=== PATIENT | female | born 1945 | race Caucasian/White ===

== ENCOUNTER 2016-12-07 20:49 | Inpatient (IN) | payer MEDICARE ==
[2016-12-07] MEDS ORDERED: HYDROmorphone 1 MG/ML Syringe IVPUSH ONE (20:54)
[2016-12-07] MEDS ORDERED: Sodium Chloride 0.9% 1,000 ML IV ONE (20:54)
[2016-12-07] MEDS ORDERED: Ondansetron 4 MG/2 ML SDV IV ONE (20:54)
[2016-12-07] MEDS ORDERED: Iopamidol 612 MG/ML 100 ML Bottle IVPUSH ONE (21:02)
--- NOTE | 2016-12-07 21:02 | EDM.PDOC ---
ED HPI GENERAL MEDICAL PROBLEM - General Chief Complaint: Back Pain or Injury Stated Complaint: ABD PAIN, PASS BLOOD Time Seen by Provider: 12/07/16 20:59 Source of Information: Reports: Patient, Family History Limitations: Reports: Other (screaming in pain) - History of Present Illness INITIAL COMMENTS - FREE TEXT/NARRATIVE: spouse states Pt might have K-stones. Pt states still has appy and pain on right back going into RLQ, Bilateral Lower Back Pain Score (Numeric/FACES): 10 - Related Data Allergies Allergy/AdvReac Type Severity Reaction Status Date / Time No Known Allergies Allergy Verified 12/07/16 20:56 Home Meds: Home Meds Aspirin [Halfprin] 81 mg PO DAILY 01/22/15 [History] Zolpidem [Ambien] 5 mg PO BEDTIME 01/22/15 [History] atorvaSTATin [Lipitor] 20 mg PO BEDTIME 01/22/15 [History] Docusate Sodium [Colace] 1 tab PO BEDTIME 02/26/16 [History] Hydrocodone/Acetaminophen [Lorcet 5-325 mg Tablet] 1 tab PO Q4H 02/26/16 [ History] [place]-3/DHA/Epa/Fish Oil [[place]-3 Fish Oil 1,400 MG Sfgl] 1 tab PO DAILY [History] Past Medical History HEENT History: Reports: None Cardiovascular History: Reports: CAD Respiratory History: Reports: None Gastrointestinal History: Reports: Diverticulosis Genitourinary History: Reports: Renal Calculus, UTI, Recurrent 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: Musculoskeletal History: Reports: Arthritis, Other (See Below) Other Musculoskeletal History: degenerative joint disease Neurological History: Reports: None Psychiatric History: Reports: None Endocrine/Metabolic History: Reports: None Hematologic History: Reports: B12 Deficiency Immunologic History: Reports: None Oncologic (Cancer) History: Reports: None Dermatologic History: Reports: None - Infectious Disease History Infectious Disease History: Reports: Chicken Pox, Measles - Past Surgical History Cardiovascular Surgical History: Reports: Coronary Artery Stent Female Surgical History: Reports: Hysterectomy, Tubal Ligation Musculoskeletal Surgical History: Reports: Other (See Below) Social & Family History - Family History Family Medical History: Noncontributory - Tobacco Use Smoking Status *Q: Never Smoker Second Hand Smoke Exposure: Yes - Recreational Drug Use Recreational Drug Use: No - Living Situation & Occupation Living situation: Reports: , with Spouse Occupation: Retired ED ROS GENERAL - Review of Systems Review Of Systems: ROS reveals no pertinent complaints other than HPI. ED EXAM,LOWER BACK PAIN/INJURY - Physical Exam Exam: See Below Exam Limited By: No Limitations General Appearance: Alert, WD/WN, Mild Distress, Other (crying & screaming) Ears: Hearing Grossly Normal Throat/Mouth: Normal Voice, No Airway Compromise Head: Atraumatic Neck: Non-Tender, Full Range of Motion Respiratory/Chest: No Respiratory Distress Cardiovascular: Regular Rate, Rhythm GI/Abdominal: Tender, Other (RLQ). No: Distended, Guarding, Rigid, Rebound Neurological: Alert, Oriented x 3 Psychiatric: Tearful Skin Exam: Warm, Dry Lymphatic: No Adenopathy Course - Vital Signs Last Recorded V/S: Last Vital Signs Temp 36.3 C 12/07/16 20:57 Pulse 97 12/07/16 20:57 Resp 32 H 12/07/16 20:57 BP 144/80 H 12/07/16 20:57 Pulse Ox 98 12/07/16 20:57 - Orders/Labs/Meds Orders: Active Orders 24 hr Category Date Time Status Abdomen Pelvis w Cont [CT] Urgent Exams 12/07/16 21:03 Taken CULTURE URINE [RM] Stat Lab 12/07/16 23:02 Ordered Labs: Laboratory Tests 12/07/16 12/07/16 12/07/16 Range/Units 20:54 20:54 21:11 WBC 3.0 L (5.0-10.0) 10^3/uL RBC 5.02 (4.2-5.4) 10^6/uL Hgb 15.6 (12.0-16.0) g/dL Hct 45.1 (37.0-47.0) % MCV 89.8 (80-100) fL MCH 31.1 (27.0-34.0) pg MCHC 34.6 (33.0-35.0) g/dL Plt Count 186 (150-450) 10^3/uL Neut % (Auto) 80.7 H (42.2-75.2) % Lymph % (Auto) 18.7 L (20.5-50.1) % [place] % (Auto) 0.3 L (2-8) % Eos % (Auto) 0.3 L (1.0-3.0) % Baso % (Auto) 0.0 (0.0-1.0) % Sodium 138 (135-145) mmol/L Potassium 3.3 L (3.6-5.0) mmol/L Chloride 103 (101-111) mmol/L Carbon Dioxide 25.0 (21.0-31.0) mmol/L Anion Gap 13.3 BUN 26 H (7-18) mg/dL Creatinine 1.1 (0.6-1.3) mg/dL Est Cr Clr Drug Dosing 37.95 mL/min Estimated GFR (MDRD) 49 BUN/Creatinine Ratio 23.63 Glucose 92 (74-105) mg/dL Calcium 9.6 (8.4-10.2) mg/dl Total Bilirubin 0.7 (0.2-1.0) mg/dL AST 30 (10-42) IU/L ALT 23 (10-60) IU/L Alkaline Phosphatase 67 (42-121) IU/L Total Protein 7.3 (6.7-8.2) g/dl Albumin 4.5 (3.2-5.5) g/dl Globulin 2.8 Albumin/Globulin Ratio 1.61 Urine Color Fielding (YELLOW) Urine Appearance Cloudy (CLEAR) Urine pH 5.5 (5.0-9.0) Ur Specific [place] 1.015 (1.005-1.030) Urine Protein >=300 H (NEGATIVE) Urine Glucose (UA) 100 H (NEGATIVE) Urine Ketones Negative (NEGATIVE) Urine Occult Blood Moderate H (NEGATIVE) Urine Nitrite Positive H (NEGATIVE) Urine Bilirubin Negative (NEGATIVE) Urine Urobilinogen 1.0 (0.2-1.0) mg/dL Ur Leukocyte Esterase Large H (NEGATIVE) Urine RBC >100 H /HPF Urine WBC >100 H (0-5/HPF) /HPF Ur Epithelial Cells Few /HPF Amorphous Sediment Rare (0/HPF) /HPF Urine Bacteria Rare (0-FEW/HPF) /HPF Urine Mucus Rare /LPF Meds: Medications Discontinued Medications Generic Name Dose Route Start Last Admin Trade Name Freq PRN Reason Stop Dose Admin Hydromorphone HCl 1 mg 12/07/16 20:54 12/07/16 20:59 Dilaudid IVPUSH 12/07/16 20:55 1 mg ONETIME ONE Administration Sodium Chloride 1,000 mls @ 999 mls/hr 12/07/16 20:54 12/07/16 20:58 Normal Saline IV 12/07/16 21:54 999 mls/hr .BOLUS ONE Administration Iopamidol 100 ml 12/07/16 21:02 Isovue-300 (61%) IVPUSH 12/07/16 21:03 ONETIME ONE Ondansetron HCl 4 mg 12/07/16 20:54 12/07/16 20:59 Zofran IV 12/07/16 20:55 4 mg ONETIME ONE Administration - Re-Assessments/Exams Free Text/Narrative Re-Assessment/Exam: 12/07/16 23:03 results discussed with Pt and case with Dr Alberto who kindly admitted Pt Departure - Departure Time of Disposition: 23:03 Disposition: Admitted As Inpatient 66 Condition: good Clinical Impression: UTI, Urinary tract infectious disease Leukopenia Qualifiers: Leukopenia type: unspecified Qualified Code(s): D72.819 - Decreased white blood cell count, unspecified - Discharge Information Forms: ED Department Discharge - My Orders Last 24 Hours: My Active Orders 12/07/16 21:03 Abdomen Pelvis w Cont [CT] Urgent 12/07/16 23:02 CULTURE URINE [RM] Stat - Assessment/Plan Last 24 Hours: My Active Orders 12/07/16 21:03 Abdomen Pelvis w Cont [CT] Urgent 12/07/16 23:02 CULTURE URINE [RM] Stat
[2016-12-07] MEDS ORDERED: Potassium Chloride 10 MEQ Tab.ER PO ONE (23:45)
[2016-12-07] MEDS ORDERED: Docusate Sodium 100 MG Cap PO PRN (23:49)
[2016-12-07] MEDS ORDERED: Ondansetron 4 MG/2 ML SDV IVPUSH PRN (23:49)
[2016-12-07] MEDS ORDERED: Ondansetron 4 MG Tab.DIS PO PRN (23:49)
[2016-12-08] MEDS: NS + KCl 20mEq/L 1,000 ML IV SCH ×2 (00:34→15:59)
[2016-12-08] MEDS: Ciprofloxacin in D5W 400 MG in Premix Bag 1 BAG IV SCH ×6 (00:39→20:57)
[2016-12-08] MEDS: Pantoprazole 40 MG Tab.CR PO SCH ×3 (00:50→17:09)
[2016-12-08] MEDS: Zolpidem 5 MG Tab PO PRN ×2 (00:50→20:56)
--- NOTE | 2016-12-08 00:58 | PCM.HP ---
H&P History of Present Illness - General Date of Service: 12/07/16 Admit Problem/Dx: Admission Diagnosis/Problem Admission Diagnosis/Problem Abdominal pain Source of Information: Patient - History of Present Illness Initial Comments - Free Text/Narative: the patient is a 71-year-old lady who has a history of chronic right-sided flank pain. The patient developed right sided abdomen pain on 06 December. This was moderate, not associated with fever or chills. Later on 07 December the patient had developed a urinary burning, suprapubic discomfort that is similar to prior episodes of urinary tract infection. In the afternoon of 07 December the patient developed a low back pain that started on the left side radiated to the right side. It was severe came in waves. She was comparing it to "childbirth". The patient came into the emergency room. She received Dilaudid and with that the pain has improved but did not completely resolve. She has been able to move lower extremities well, there was no radiation to the legs and no lower extremity numbness. Bilateral Lower Back Pain Score (Numeric/FACES): 10 - Related Data Allergies/Adverse Reactions: Allergies Allergy/AdvReac Type Severity Reaction Status Date / Time sulfamethoxazole Allergy Nausea and Verified 12/07/16 23:37 [From Bactrim] Vomiting trimethoprim [From Bactrim] Allergy Nausea and Verified 12/07/16 23:37 Vomiting Home Medications: Home Meds Aspirin [Halfprin] 81 mg PO DAILY 01/22/15 [History] Zolpidem [Ambien] 5 mg PO BEDTIME 01/22/15 [History] atorvaSTATin [Lipitor] 20 mg PO BEDTIME 01/22/15 [History] Docusate Sodium [Colace] 1 tab PO BEDTIME 02/26/16 [History] Hydrocodone/Acetaminophen [Lorcet 5-325 mg Tablet] 1 tab PO Q4H 02/26/16 [ History] [place]-3/DHA/Epa/Fish Oil [[place]-3 Fish Oil 1,400 MG Sfgl] 1 tab PO DAILY [History] Past Medical History HEENT History: Reports: None, Sinusitis Cardiovascular History: Reports: CAD, High Cholesterol, SOB on Exertion, Stents , Syncope Other Cardiovascular History: 3 stents Respiratory History: Reports: None, Bronchitis, Recurrent, Croup, Pneumonia, Recurrent Gastrointestinal History: Reports: Diverticulosis, GERD, Hemorrhoids, Hiatal Hernia, Other (See Below) Other Gastrointestinal History: Stent on Right side from bowel obstruction Genitourinary History: Reports: Renal Calculus, UTI, Recurrent 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 OB/BYN History: NVD 4 Musculoskeletal History: Reports: Arthritis, Back Pain, Chronic, Other (See Below) Other Musculoskeletal History: degenerative joint disease Neurological History: Reports: None Psychiatric History: Reports: None Endocrine/Metabolic History: Reports: Obesity/BMI 30+ Hematologic History: Reports: B12 Deficiency Immunologic History: Reports: None Oncologic (Cancer) History: Reports: None Dermatologic History: Reports: None - Infectious Disease History Infectious Disease History: Reports: Chicken Pox, Measles, Mumps, Pertussis ( Whooping Cough), Other (See Below) Other Infectious Disease History: Rhuematic fever - Past Surgical History HEENT Surgical History: Reports: Adenoidectomy, Eye Surgery, Tonsillectomy Cardiovascular Surgical History: Reports: Coronary Artery Stent Respiratory Surgical History: Reports: None GI Surgical History: Reports: Cholecystectomy, Colonoscopy, EGD Female Surgical History: Reports: Hysterectomy, Tubal Ligation Musculoskeletal Surgical History: Reports: Other (See Below) Social & Family History - Family History Family Medical History: Noncontributory - Tobacco Use Smoking Status *Q: Never Smoker Second Hand Smoke Exposure: No - Caffeine Use Caffeine Use: Reports: Coffee Other Caffeine Use: drink 3-4 cups a day - Recreational Drug Use Recreational Drug Use: No - Living Situation & Occupation Living situation: Reports: , with Spouse Occupation: Retired H&P Review of Systems - Review of Systems: Review Of Systems: See Below General: Reports: Chills Pulmonary: Denies: Shortness of Breath, Wheezing Cardiovascular: Denies: Chest Pain Gastrointestinal: Reports: Abdominal Pain Genitourinary: Reports: Dysuria Psychiatric: Denies: Confusion Neurological: Reports: Headache Exam - Exam Exam: See Below - Vital Signs Vital Signs: Last Vital Signs Temp 36.3 C 12/07/16 20:57 Pulse 97 12/07/16 20:57 Resp 32 H 12/07/16 20:57 BP 144/80 H 12/07/16 20:57 Pulse Ox 98 12/07/16 20:57 Weight: 77.621 kg - Exam General: Alert, Oriented Neck: Supple Lungs: Clear to Auscultation, Normal Respiratory Effort Cardiovascular: Regular Rate, Regular Rhythm Abdomen: Normal Bowel Sounds, Soft, Other (Suprapubic and right sided tenderness without guarding) Back Exam: Normal Inspection, Other (bilateral straight leg raising test negative) Extremities: Normal Inspection. No: Edema Skin: Warm, Dry, Intact Neuro Extensive - Mental Status: Alert, Oriented x3, Normal Mood/Affect, Normal Cognition - Patient Data Result Diagrams: 12/07/16 20:54 12/07/16 20:54 Imaging Impressions last 24 hrs: CT of the abdomen per reading showed the no abnormalities. Unremarkable appendix , Pancrease. No apparent bowel distention. *Q Meaningful Use (ADM) - VTE *Q VTE Criteria *Q: - Stroke *Q Stroke Criteria *Q: - AMI *Q AMI Criteria *Q: - Problem List (1) Abdominal pain SNOMED Code(s): 82719282 ICD Code: R10.9 - UNSPECIFIED ABDOMINAL PAIN Status: Acute Current Visit : No Qualifiers: Abdominal location: right lower quadrant Qualified Code(s): R10.31 - Right lower quadrant pain (2) UTI, Urinary tract infectious disease SNOMED Code(s): 98700449 ICD Code: N39.0 - URINARY TRACT INFECTION, SITE NOT SPECIFIED Status: Acute Current Visit: Yes Problem List Initiated/Reviewed/Updated: Yes Orders Last 24hrs: Active Orders 24 hr Category Date Time Status Patient Status [ADT] Routine ADT 12/07/16 23:49 Ordered Antiembolic Devices [RC] PER UNIT ROUTINE Care 12/07/16 23:50 Ordered Oxygen Therapy [RC] PRN Care 12/07/16 23:49 Ordered Peripheral IV Care [RC] . DIRECTED Care 12/07/16 23:50 Ordered Up With Assistance [RC] ASDIRECTED Care 12/07/16 23:49 Ordered VTE/DVT Education [RC] PER UNIT ROUTINE Care 12/07/16 23:49 Ordered Vital Signs [RC] Q4H Care 12/07/16 23:49 Ordered Clear Liquid Diet [DIET] Diet 12/07/16 Breakfast Ordered BASIC METABOLIC PANEL,BMP [CHEM] AM Lab 12/08/16 05:15 Ordered CBC WITH AUTO DIFF [HEME] AM Lab 12/08/16 05:15 Ordered HEPATIC FUNCTION PANEL,HFP [CHEM] AM Lab 12/08/16 05:11 Ordered LACTIC ACID [CHEM] AM Lab 12/08/16 05:11 Ordered LIPASE [CHEM] AM Lab 12/08/16 05:11 Ordered Acetaminophen [Tylenol] Med 12/07/16 23:49 Ordered 650 mg PO Q4H PRN Aspirin [Halfprin] Med 12/08/16 09:00 Ordered 81 mg PO DAILY Ciprofloxacin in D5W [Cipro in D5W 400 MG/200 ML] 400 Med 12/07/16 23:50 Ordered mg Premix Bag 1 bag IV Q12HR Docusate Sodium [Colace] Med 12/07/16 23:49 Ordered 100 mg PO BID PRN Heparin Sodium Med 12/08/16 06:00 Ordered 5,000 units SUBCUT Q8HR Morphine Med 12/07/16 23:49 Ordered 1 mg IVPUSH Q2H PRN Ondansetron [Zofran ODT] Med 12/07/16 23:49 Ordered 4 mg PO Q6H PRN Ondansetron [Zofran] Med 12/07/16 23:49 Ordered 4 mg IVPUSH Q6H PRN Pantoprazole [ProTONIX] Med 12/08/16 01:00 Ordered 40 mg PO BIDAC Sodium Chloride 0.9% [Saline Flush] Med 12/07/16 23:49 Ordered 10 ml FLUSH ASDIRECTED PRN Sodium Chloride 0.9% with KCl 20 mEq @ 75 mL/Hr (1000 Med 12/07/16 23:45 Ordered mL) NS + KCl 20mEq/L [Normal Saline with 20 mEq KCl] 1,000 ml IV ASDIRECTED Zolpidem [Ambien] Med 12/07/16 23:49 Ordered 5 mg PO BEDTIME PRN Antiembolic Hose [OM.PC] Per Unit Routine Oth 12/07/16 23:50 Ordered Peripheral IV Insertion Adult [OM.PC] Routine Oth 12/07/16 23:49 Ordered Resuscitation Status Routine Resus Stat 12/07/16 23:49 Ordered Medication Orders Acetaminophen (Tylenol) 650 mg PO Q4H PRN PRN Reason: Pain (Mild 1-3)/fever Aspirin (Halfprin) 81 mg PO DAILY [facility] Docusate Sodium (Colace) 100 mg PO BID PRN PRN Reason: Constipation Heparin Sodium (Porcine) (Heparin Sodium) 5,000 units SUBCUT Q8H [facility] Potassium Chloride/Sodium Chloride (Normal Saline With 20 Meq Kcl) 1,000 mls @ 75 mls/hr IV ASDIRECTED [facility] Last Admin: 12/08/16 00:34 Dose: 75 mls/hr Ciprofloxacin/Dextrose 400 mg/ (Premix) 200 mls @ 200 mls/hr IV Q12HR [facility] Last Admin: 12/08/16 00:39 Dose: 200 mls/hr Morphine Sulfate (Morphine) 1 mg IVPUSH Q2H PRN PRN Reason: Pain (severe 7-10) Ondansetron HCl (Zofran Odt) 4 mg PO Q6H PRN PRN Reason: nausea, able to take PO Ondansetron HCl (Zofran) 4 mg IVPUSH Q6H PRN PRN Reason: Nausea/Vomiting Pantoprazole Sodium (Protonix) 40 mg PO BIDAC [facility] Sodium Chloride (Saline Flush) 10 ml FLUSH ASDIRECTED PRN PRN Reason: Keep Vein Open Zolpidem Tartrate (Ambien) 5 mg PO BEDTIME PRN PRN Reason: Sleep Assessment/Plan Comment:: the patient presented with low back pain right-sided abdominal pain, urinary burning. Acute urinary tract infection No apparent pyelonephritis on CAT scan We'll obtain urine culture Treat with ciprofloxacin The abdomen pain and low back pain might relate to her urinary tract infection. No other abnormalities noted on CAT scan For now we'll monitor Start Protonix Use IV morphine as needed Dyslipidemia Treat with Lipitor DVT prophylaxis will be with subcutaneous heparin
[2016-12-08] MEDS: Morphine 2 MG/ML Syringe IVPUSH PRN ×2 (04:57→20:56)
[2016-12-08] MEDS: Heparin Sodium 5,000 Units/ML Vial SUBCUT SCH ×3 (05:56→21:01)
[2016-12-08] MEDS: Aspirin 81 MG Tab.EC PO SCH (09:08)
[2016-12-08] MEDS: Acetaminophen 325 MG Tab PO PRN (09:15)
--- NOTE | 2016-12-08 12:35 | PCM.PN ---
- General Info Date of Service: 12/08/16 Admission Dx/Problem (Free Text): Admission Diagnosis/Problem Admission Diagnosis/Problem Abdominal pain Subjective Update: she is feeling better, much improved right abdomen pain. She had low-grade temperature but no chills. Could not sleep much overnight. - Review of Systems General: Reports: Fever, Fatigue Pulmonary: Denies: shortness of breath Cardiovascular: Denies: Chest Pain Gastrointestinal: Reports: Abdominal pain (improved) Genitourinary: Reports: dysuria (improved), burning Neurological: Denies: Confusion - Patient Data Vitals - most recent: Last Vital Signs Temp 37.6 C 12/08/16 08:29 Pulse 80 12/08/16 08:29 Resp 20 12/08/16 08:29 BP 87/50 L 12/08/16 08:29 Pulse Ox 93 L 12/08/16 08:29 Weight - most recent: 77.621 kg I&O - last 24 hours: Intake & Output 12/07/16 12/08/16 12/08/16 22:59 06:59 14:59 Intake Total 1222 Output Total 350 Balance 872 Lab Results last 24 hrs: Laboratory Results - last 24 hr 12/08/16 12/08/16 12/08/16 Range/Units 06:15 06:15 06:15 WBC 4.6 L (5.0-10.0) 10^3/uL RBC 4.15 L (4.2-5.4) 10^6/uL Hgb 12.8 (12.0-16.0) g/dL Hct 37.9 (37.0-47.0) % MCV 91.3 (80-100) fL MCH 30.8 (27.0-34.0) pg MCHC 33.8 (33.0-35.0) g/dL Plt Count 163 (150-450) 10^3/uL Neut % (Auto) 93.3 H (42.2-75.2) % Lymph % (Auto) 3.7 L (20.5-50.1) % [place] % (Auto) 2.6 (2-8) % Eos % (Auto) 0.2 L (1.0-3.0) % Baso % (Auto) 0.2 (0.0-1.0) % Sodium 137 (135-145) mmol/L Potassium 4.7 (3.6-5.0) mmol/L Chloride 109 (101-111) mmol/L Carbon Dioxide 23.0 (21.0-31.0) mmol/L Anion Gap 9.7 BUN 19 H (7-18) mg/dL Creatinine 1.1 (0.6-1.3) mg/dL Est Cr Clr Drug Dosing 37.10 mL/min Estimated GFR (MDRD) 49 Glucose 105 (74-105) mg/dL Lactic Acid 1.6 (0.5-2.2) mmol/L Calcium 8.2 L (8.4-10.2) mg/dl Total Bilirubin 0.5 (0.2-1.0) mg/dL Direct Bilirubin 0.1 (0.0-0.2) mg/dL Indirect Bilirubin 0.4 AST 32 (10-42) IU/L ALT 23 (10-60) IU/L Alkaline Phosphatase 48 (42-121) IU/L Total Protein 5.3 L (6.7-8.2) g/dl Albumin 3.3 (3.2-5.5) g/dl Globulin 2.0 Albumin/Globulin Ratio 1.65 Lipase 39 (22-51) U/L Med Orders - Current: Current Medications Acetaminophen (Tylenol) 650 mg PO Q4H PRN PRN Reason: Pain (Mild 1-3)/fever Last Admin: 12/08/16 09:15 Dose: 650 mg Aspirin (Halfprin) 81 mg PO DAILY [facility] Last Admin: 12/08/16 09:08 Dose: 81 mg Atorvastatin Calcium (Lipitor) 20 mg PO BEDTIME [facility] Docusate Sodium (Colace) 100 mg PO BID PRN PRN Reason: Constipation Heparin Sodium (Porcine) (Heparin Sodium) 5,000 units SUBCUT Q8H [facility] Last Admin: 12/08/16 05:56 Dose: 5,000 units Potassium Chloride/Sodium Chloride (Normal Saline With 20 Meq Kcl) 1,000 mls @ 75 mls/hr IV ASDIRECTED [facility] Last Admin: 12/08/16 00:34 Dose: 75 mls/hr Ciprofloxacin/Dextrose 400 mg/ (Premix) 200 mls @ 200 mls/hr IV Q12HR [facility] Last Admin: 12/08/16 09:17 Dose: 200 mls/hr Morphine Sulfate (Morphine) 1 mg IVPUSH Q2H PRN PRN Reason: Pain (severe 7-10) Last Admin: 12/08/16 04:57 Dose: 1 mg Ondansetron HCl (Zofran Odt) 4 mg PO Q6H PRN PRN Reason: nausea, able to take PO Ondansetron HCl (Zofran) 4 mg IVPUSH Q6H PRN PRN Reason: Nausea/Vomiting Pantoprazole Sodium (Protonix) 40 mg PO BIDAC [facility] Last Admin: 12/08/16 05:56 Dose: 40 mg Sodium Chloride (Saline Flush) 10 ml FLUSH ASDIRECTED PRN PRN Reason: Keep Vein Open Zolpidem Tartrate (Ambien) 5 mg PO BEDTIME PRN PRN Reason: Sleep Last Admin: 12/08/16 00:50 Dose: 5 mg Discontinued Medications Hydromorphone HCl (Dilaudid) 1 mg IVPUSH ONETIME ONE Stop: 12/07/16 20:55 Last Admin: 12/07/16 20:59 Dose: 1 mg Sodium Chloride (Normal Saline) 1,000 mls @ 999 mls/hr IV .BOLUS ONE Stop: 12/07/16 21:54 Last Admin: 12/07/16 20:58 Dose: 999 mls/hr Iopamidol (Isovue-300 (61%)) 100 ml IVPUSH ONETIME ONE Stop: 12/07/16 21:03 Ondansetron HCl (Zofran) 4 mg IV ONETIME ONE Stop: 12/07/16 20:55 Last Admin: 12/07/16 20:59 Dose: 4 mg Potassium Chloride (Klor-Con 10) 40 meq PO ONETIME ONE Stop: 12/07/16 23:46 Last Admin: 12/08/16 00:49 Dose: 40 meq - Exam General: alert, oriented Neck: supple Lungs: Clear to auscultation, Normal respiratory effort Cardiovascular: Regular Rate, Regular Rhythm Abdomen: bowel sounds present, soft, no distension, tenderness (mild right lower quadrant) Extremities: no edema Skin: warm, dry, intact Neurological: no new focal deficit Psy/Mental Status: alert, normal affect, normal mood - Problem List & Annotations (1) Abdominal pain SNOMED Code(s): 86671753 Code(s): R10.9 - UNSPECIFIED ABDOMINAL PAIN Status: Acute Current Visit: No Qualifiers: Abdominal location: right lower quadrant Qualified Code(s): R10.31 - Right lower quadrant pain (2) UTI, Urinary tract infectious disease SNOMED Code(s): 22674841 Code(s): N39.0 - URINARY TRACT INFECTION, SITE NOT SPECIFIED Status: Acute Current Visit: Yes - Problem List Review Problem List Initiated/Reviewed/Updated: Yes - My Orders Last 24 Hours: My Active Orders 12/08/16 01:00 Pantoprazole [ProTONIX] 40 mg PO BIDAC 12/08/16 09:00 Aspirin [Halfprin] 81 mg PO DAILY 12/08/16 21:00 atorvaSTATin [Lipitor] 20 mg PO BEDTIME 12/09/16 05:15 BASIC METABOLIC PANEL,BMP [CHEM] AM CBC WITH AUTO DIFF [HEME] AM - Plan Plan:: the patient presented with low back pain right-sided abdominal pain, urinary burning. Acute urinary tract infection No apparent pyelonephritis on CAT scan urine culture: pending Treat empiriclly with IV ciprofloxacin The abdomen pain and low back pain might relate to her urinary tract infection. No other abnormalities noted on CAT scan For now we'll monitor continue Protonix Use IV morphine, percocet as needed Dyslipidemia Treat with Lipitor DVT prophylaxis will be with subcutaneous heparin
[2016-12-08] MEDS: Acetaminophen/oxyCODONE 325-5 MG Tab PO PRN ×2 (14:53→19:43)
[2016-12-08] MEDS: atorvaSTATin 20 MG Tab PO SCH (20:57)
[2016-12-09] MEDS: Acetaminophen 325 MG Tab PO PRN ×2 (04:18→08:01)
[2016-12-09] MEDS: Pantoprazole 40 MG Tab.CR PO SCH (06:02)
[2016-12-09] MEDS: Heparin Sodium 5,000 Units/ML Vial SUBCUT SCH ×3 (06:02→22:55)
[2016-12-09] MEDS: Ciprofloxacin in D5W 400 MG in Premix Bag 1 BAG IV SCH ×4 (08:00→22:56)
[2016-12-09] MEDS: Aspirin 81 MG Tab.EC PO SCH (08:01)
[2016-12-09] MEDS: Sodium Chloride 0.9% 10 ML Syringe FLUSH PRN (08:02)
--- NOTE | 2016-12-09 12:08 | PCM.PN ---
- General Info Date of Service: 12/09/16 Admission Dx/Problem (Free Text): Admission Diagnosis/Problem Admission Diagnosis/Problem Abdominal pain Subjective Update: she is feeling much better, the abdominal pain has resolved. She continue to have low-grade temperature but no chills. Functional Status: Reports: pain controlled - Review of Systems General: Reports: Fever (low-grade) HEENT: Reports: no symptoms Pulmonary: Reports: no symptoms. Denies: shortness of breath Cardiovascular: Denies: Chest Pain Gastrointestinal: Reports: Abdominal pain (resolved) Skin: Denies: rash - Patient Data Vitals - most recent: Last Vital Signs Temp 36.7 C 12/09/16 11:00 Pulse 63 12/09/16 11:00 Resp 20 12/09/16 11:00 BP 110/50 L 12/09/16 11:00 Pulse Ox 98 12/09/16 11:00 Weight - most recent: 77.621 kg I&O - last 24 hours: Intake & Output 12/08/16 12/09/16 12/09/16 22:59 06:59 14:59 Intake Total 2275 500 420 Output Total 700 1000 900 Balance 1575 -500 -480 Lab Results last 24 hrs: Laboratory Results - last 24 hr 12/09/16 12/09/16 Range/Units 06:05 06:05 WBC 2.2 L (5.0-10.0) 10^3/uL RBC 4.53 (4.2-5.4) 10^6/uL Hgb 13.8 (12.0-16.0) g/dL Hct 41.6 (37.0-47.0) % MCV 91.8 (80-100) fL MCH 30.5 (27.0-34.0) pg MCHC 33.2 (33.0-35.0) g/dL Plt Count 139 L (150-450) 10^3/uL Neut % (Auto) 60.8 (42.2-75.2) % Lymph % (Auto) 24.9 (20.5-50.1) % [place] % (Auto) 12.0 H (2-8) % Eos % (Auto) 1.8 (1.0-3.0) % Baso % (Auto) 0.5 (0.0-1.0) % Sodium 137 (135-145) mmol/L Potassium 4.0 (3.6-5.0) mmol/L Chloride 108 (101-111) mmol/L Carbon Dioxide 24.0 (21.0-31.0) mmol/L Anion Gap 9.0 BUN 10 (7-18) mg/dL Creatinine 1.1 (0.6-1.3) mg/dL Est Cr Clr Drug Dosing 37.10 mL/min Estimated GFR (MDRD) 49 Glucose 99 (74-105) mg/dL Calcium 8.3 L (8.4-10.2) mg/dl Med Orders - Current: Current Medications Acetaminophen (Tylenol) 650 mg PO Q4H PRN PRN Reason: Pain (Mild 1-3)/fever Last Admin: 12/09/16 08:01 Dose: 650 mg Aspirin (Halfprin) 81 mg PO DAILY [facility] Last Admin: 12/09/16 08:01 Dose: 81 mg Atorvastatin Calcium (Lipitor) 20 mg PO BEDTIME [facility] Last Admin: 12/08/16 20:57 Dose: 20 mg Docusate Sodium (Colace) 100 mg PO BID PRN PRN Reason: Constipation Heparin Sodium (Porcine) (Heparin Sodium) 5,000 units SUBCUT Q8H [facility] Last Admin: 12/09/16 06:02 Dose: 5,000 units Ciprofloxacin/Dextrose 400 mg/ (Premix) 200 mls @ 200 mls/hr IV Q12HR [facility] Last Admin: 12/09/16 08:00 Dose: 200 mls/hr Morphine Sulfate (Morphine) 1 mg IVPUSH Q2H PRN PRN Reason: Pain (severe 7-10) Last Admin: 12/08/16 20:56 Dose: 1 mg Ondansetron HCl (Zofran Odt) 4 mg PO Q6H PRN PRN Reason: nausea, able to take PO Ondansetron HCl (Zofran) 4 mg IVPUSH Q6H PRN PRN Reason: Nausea/Vomiting Oxycodone/Acetaminophen (Percocet 325-5 Mg) 1 tab PO Q4H PRN PRN Reason: moderate to severe pain Last Admin: 12/08/16 19:43 Dose: 1 tab Pantoprazole Sodium (Protonix) 40 mg PO BIDAC [facility] Last Admin: 12/09/16 06:02 Dose: 40 mg Sodium Chloride (Saline Flush) 10 ml FLUSH ASDIRECTED PRN PRN Reason: Keep Vein Open Last Admin: 12/09/16 08:02 Dose: 10 ml Zolpidem Tartrate (Ambien) 5 mg PO BEDTIME PRN PRN Reason: Sleep Last Admin: 12/08/16 20:56 Dose: 5 mg Discontinued Medications Hydromorphone HCl (Dilaudid) 1 mg IVPUSH ONETIME ONE Stop: 12/07/16 20:55 Last Admin: 12/07/16 20:59 Dose: 1 mg Sodium Chloride (Normal Saline) 1,000 mls @ 999 mls/hr IV .BOLUS ONE Stop: 12/07/16 21:54 Last Admin: 12/07/16 20:58 Dose: 999 mls/hr Potassium Chloride/Sodium Chloride (Normal Saline With 20 Meq Kcl) 1,000 mls @ 75 mls/hr IV ASDIRECTED [facility] Last Infusion: 12/08/16 17:46 Dose: 0 mls/hr Iopamidol (Isovue-300 (61%)) 100 ml IVPUSH ONETIME ONE Stop: 12/07/16 21:03 Ondansetron HCl (Zofran) 4 mg IV ONETIME ONE Stop: 12/07/16 20:55 Last Admin: 12/07/16 20:59 Dose: 4 mg Potassium Chloride (Klor-Con 10) 40 meq PO ONETIME ONE Stop: 12/07/16 23:46 Last Admin: 12/08/16 00:49 Dose: 40 meq - Exam General: alert, oriented Neck: supple Lungs: Clear to auscultation, Normal respiratory effort Abdomen: bowel sounds present, soft, no tenderness, no distension Extremities: no edema - Problem List & Annotations (1) Abdominal pain SNOMED Code(s): 46164890 Code(s): R10.9 - UNSPECIFIED ABDOMINAL PAIN Status: Acute Current Visit: No Qualifiers: Abdominal location: right lower quadrant Qualified Code(s): R10.31 - Right lower quadrant pain (2) UTI, Urinary tract infectious disease SNOMED Code(s): 08487485 Code(s): N39.0 - URINARY TRACT INFECTION, SITE NOT SPECIFIED Status: Acute Current Visit: Yes - Problem List Review Problem List Initiated/Reviewed/Updated: Yes - My Orders Last 24 Hours: My Active Orders 12/08/16 12:35 Acetaminophen/oxyCODONE [Percocet 325-5 MG] 1 tab PO Q4H PRN 12/08/16 21:00 atorvaSTATin [Lipitor] 20 mg PO BEDTIME 12/08/16 Dinner Regular Diet [DIET] 12/10/16 05:15 BASIC METABOLIC PANEL,BMP [CHEM] AM CBC WITH AUTO DIFF [HEME] AM - Plan Plan:: the patient presented with low back pain right-sided abdominal pain, urinary burning. Acute urinary tract infection No apparent pyelonephritis on CT scan urine culture: pending Continue to treat empirically with IV ciprofloxacin leukopenia might relate to the infection Will recheck in the morning The abdomen pain and low back pain might relate to her urinary tract infection. No other abnormalities noted on CT scan seems resolved For now we'll monitor continue Protonix Use IV morphine, percocet as needed Dyslipidemia Treat with Lipitor DVT prophylaxis will be with subcutaneous heparin
[2016-12-09] MEDS: Omeprazole 20 MG Cap.CR PO SCH (17:16)
[2016-12-09] MEDS: Acetaminophen/oxyCODONE 325-5 MG Tab PO PRN (20:43)
[2016-12-09] MEDS: atorvaSTATin 20 MG Tab PO SCH (20:43)
[2016-12-09] MEDS: Zolpidem 5 MG Tab PO PRN (23:11)
[2016-12-10] MEDS: Heparin Sodium 5,000 Units/ML Vial SUBCUT SCH (06:53)
[2016-12-10] MEDS: Ciprofloxacin in D5W 400 MG in Premix Bag 1 BAG IV SCH ×2 (10:04)
[2016-12-10] MEDS: Sodium Chloride 0.9% 10 ML Syringe FLUSH PRN (10:07)
[2016-12-10 11:17] VITALS: BP 135/72
[2016-12-10] MEDS: Aspirin 81 MG Tab.EC PO SCH (11:37)
[2016-12-10] MEDS: Omeprazole 20 MG Cap.CR PO SCH (11:37)
--- NOTE | 2016-12-10 11:42 | PCM.DCSUM1 ---
Discharge Summary - Hospital Course Free Text/Narrative:: the patient presented with low back pain right-sided abdominal pain, urinary burning. Acute urinary tract infection No apparent pyelonephritis on CT scan urine culture: likely contaminant Treated empirically with IV ciprofloxacin symptoms have resolved leukopenia might relate to the urinary tract infection improving The abdominal pain and low back pain might relate to her urinary tract infection. No other abnormalities noted on CT scan seems resolved Dyslipidemia Treat with Lipitor - Discharge Data Discharge Date: 12/10/16 Discharge Disposition: Home, Self-Care 01 Condition: Good - Discharge Diagnosis/Problem(s) (1) Abdominal pain SNOMED Code(s): 03654771 ICD Code: R10.9 - UNSPECIFIED ABDOMINAL PAIN Status: Acute Current Visit : No Qualifiers: Abdominal location: right lower quadrant Qualified Code(s): R10.31 - Right lower quadrant pain (2) UTI, Urinary tract infectious disease SNOMED Code(s): 78684478 ICD Code: N39.0 - URINARY TRACT INFECTION, SITE NOT SPECIFIED Status: Acute Current Visit: Yes - Patient Instructions Diet: Usual Diet as Tolerated Activity: As Tolerated - Discharge Plan Prescriptions/Med Rec: Ciprofloxacin HCl [Cipro] 500 mg PO BID #10 tablet Home Medications: Home Meds Aspirin [Halfprin] 81 mg PO DAILY 01/22/15 [History] Zolpidem [Ambien] 5 mg PO BEDTIME 01/22/15 [History] atorvaSTATin [Lipitor] 20 mg PO BEDTIME 01/22/15 [History] Docusate Sodium [Colace] 1 tab PO BEDTIME 02/26/16 [History] Hydrocodone/Acetaminophen [Lorcet 5-325 mg Tablet] 1 tab PO Q4H 02/26/16 [ History] [place]-3/DHA/Epa/Fish Oil [[place]-3 Fish Oil 1,400 MG Sfgl] 1 tab PO DAILY [History] Ciprofloxacin HCl [Cipro] 500 mg PO BID #10 tablet 12/10/16 [Rx] Referrals: Saroj Shrestha MD [Primary Care Provider] - (2-3 days) - Discharge Summary/Plan Comment DC Time >30 min.: No - General Info Date of Service: 12/10/16 Subjective Update: she is feeling well, the abdominal pain has resolved. normal fever, no more urinary burning Eating and drinking well - Review of Systems General: Denies: Fever, Weakness Pulmonary: Denies: shortness of breath Cardiovascular: Denies: Chest Pain Gastrointestinal: Denies: Abdominal pain Genitourinary: Denies: dysuria - Patient Data Vitals - Most Recent: Last Vital Signs Temp 36.8 C 12/10/16 11:00 Pulse 65 12/10/16 11:00 Resp 20 12/10/16 11:00 BP 135/72 12/10/16 11:00 Pulse Ox 96 12/10/16 11:00 Weight - Most Recent: 77.621 kg I&O - Last 24 hours: Intake & Output 12/09/16 12/10/16 12/10/16 22:59 06:59 14:59 Intake Total 700 100 Output Total 750 750 Balance -50 -650 Lab Results - Last 24 hrs: Laboratory Results - last 24 hr 12/10/16 12/10/16 Range/Units 06:05 06:05 WBC 2.8 L (5.0-10.0) 10^3/uL RBC 4.37 (4.2-5.4) 10^6/uL Hgb 13.3 (12.0-16.0) g/dL Hct 40.0 (37.0-47.0) % MCV 91.5 (80-100) fL MCH 30.4 (27.0-34.0) pg MCHC 33.3 (33.0-35.0) g/dL Plt Count 142 L (150-450) 10^3/uL Neut % (Auto) 38.4 L (42.2-75.2) % Lymph % (Auto) 42.4 (20.5-50.1) % [place] % (Auto) 15.9 H (2-8) % Eos % (Auto) 2.9 (1.0-3.0) % Baso % (Auto) 0.4 (0.0-1.0) % Sodium 139 (135-145) mmol/L Potassium 4.2 (3.6-5.0) mmol/L Chloride 106 (101-111) mmol/L Carbon Dioxide 27.0 (21.0-31.0) mmol/L Anion Gap 10.2 BUN 13 (7-18) mg/dL Creatinine 1.0 (0.6-1.3) mg/dL Est Cr Clr Drug Dosing 40.81 mL/min Estimated GFR (MDRD) 55 Glucose 98 (74-105) mg/dL Calcium 8.4 (8.4-10.2) mg/dl Med Orders - Current: Current Medications Acetaminophen (Tylenol) 650 mg PO Q4H PRN PRN Reason: Pain (Mild 1-3)/fever Last Admin: 12/09/16 08:01 Dose: 650 mg Aspirin (Halfprin) 81 mg PO DAILY [facility] Last Admin: 12/09/16 08:01 Dose: 81 mg Atorvastatin Calcium (Lipitor) 20 mg PO BEDTIME [facility] Last Admin: 12/09/16 20:43 Dose: 20 mg Docusate Sodium (Colace) 100 mg PO BID PRN PRN Reason: Constipation Heparin Sodium (Porcine) (Heparin Sodium) 5,000 units SUBCUT Q8H [facility] Last Admin: 12/10/16 06:53 Dose: 5,000 units Ciprofloxacin/Dextrose 400 mg/ (Premix) 200 mls @ 200 mls/hr IV Q12HR [facility] Last Admin: 12/10/16 10:04 Dose: 200 mls/hr Morphine Sulfate (Morphine) 1 mg IVPUSH Q2H PRN PRN Reason: Pain (severe 7-10) Last Admin: 12/08/16 20:56 Dose: 1 mg Omeprazole (Omeprazole) 20 mg PO BIDAC [facility] Last Admin: 12/09/16 17:16 Dose: 20 mg Ondansetron HCl (Zofran Odt) 4 mg PO Q6H PRN PRN Reason: nausea, able to take PO Ondansetron HCl (Zofran) 4 mg IVPUSH Q6H PRN PRN Reason: Nausea/Vomiting Oxycodone/Acetaminophen (Percocet 325-5 Mg) 1 tab PO Q4H PRN PRN Reason: moderate to severe pain Last Admin: 12/09/16 20:43 Dose: 1 tab Sodium Chloride (Saline Flush) 10 ml FLUSH ASDIRECTED PRN PRN Reason: Keep Vein Open Last Admin: 12/10/16 10:07 Dose: 10 ml Zolpidem Tartrate (Ambien) 5 mg PO BEDTIME PRN PRN Reason: Sleep Last Admin: 12/09/16 23:11 Dose: 5 mg Discontinued Medications Hydromorphone HCl (Dilaudid) 1 mg IVPUSH ONETIME ONE Stop: 12/07/16 20:55 Last Admin: 12/07/16 20:59 Dose: 1 mg Sodium Chloride (Normal Saline) 1,000 mls @ 999 mls/hr IV .BOLUS ONE Stop: 12/07/16 21:54 Last Admin: 12/07/16 20:58 Dose: 999 mls/hr Potassium Chloride/Sodium Chloride (Normal Saline With 20 Meq Kcl) 1,000 mls @ 75 mls/hr IV ASDIRECTED [facility] Last Infusion: 12/08/16 17:46 Dose: 0 mls/hr Iopamidol (Isovue-300 (61%)) 100 ml IVPUSH ONETIME ONE Stop: 12/07/16 21:03 Ondansetron HCl (Zofran) 4 mg IV ONETIME ONE Stop: 12/07/16 20:55 Last Admin: 12/07/16 20:59 Dose: 4 mg Pantoprazole Sodium (Protonix) 40 mg PO BIDAC [facility] Last Admin: 12/09/16 06:02 Dose: 40 mg Potassium Chloride (Klor-Con 10) 40 meq PO ONETIME ONE Stop: 12/07/16 23:46 Last Admin: 12/08/16 00:49 Dose: 40 meq - Exam General: Reports: alert, oriented Neck: Reports: supple Lungs: Reports: Clear to auscultation, Normal respiratory effort Cardiovascular: Reports: Regular Rate, Regular Rhythm Abdomen: Reports: bowel sounds present, soft, no tenderness, no distension Extremities: Reports: no edema *Q Meaningful Use (DIS) - VTE *Q VTE Criteria *Q: - Stroke *Q Stroke Criteria *Q: - AMI *Q AMI Criteria *Q:
== END 2016-12-10 11:30 | disposition home or self-care (01) | DRG 690 ==
LOC: DL.ED 20:49 → INTOOBSV 23:17 → UNDOADMOB 23:17 → DL.MS 23:17 → OBSVTOIN 12-09 14:15
PROVIDERS: ADMIT Internal Medicine; ATTEND Internal Medicine
DX: N39.0 Urinary tract infection, site not specified (principal); D72.819 Decreased white blood cell count, unspecified; E78.5 Hyperlipidemia, unspecified; M54.5 Low back pain; R10.31 Right lower quadrant pain; I25.10 Atherosclerotic heart disease of native coronary artery without angina pectoris; Z95.5 Presence of coronary angioplasty implant and graft; E78.00 Pure hypercholesterolemia, unspecified; M19.90 Unspecified osteoarthritis, unspecified site; K21.9 Gastro-esophageal reflux disease without esophagitis; K44.9 Diaphragmatic hernia without obstruction or gangrene; E66.9 Obesity, unspecified; Z68.30 Body mass index [BMI] 30.0-30.9, adult; E53.8 Deficiency of other specified B group vitamins; Z79.82 Long term (current) use of aspirin; Z79.899 Other long term (current) drug therapy; Z88.1 Allergy status to other antibiotic agents; Z88.2 Allergy status to sulfonamides
CPT/HCPCS: 36415 ×3; 74177; 80048 ×2; 80053; 80076; 81001; 83605; 83690; 85025 ×3; 87086; 96361; 96374; 96375; 99285; A9270 ×15; J0744 ×4; J1170; J1644 ×5; J2270 ×2; J2405; J3480 ×2; J7030; J7050; Q9967; 96365; 96366; 96367; 96372; 96376; 99284; G0378

== ENCOUNTER 2016-12-27 17:12 | Emergency (ER) | payer MEDICARE ==
[2016-12-27 18:02] VITALS: BP 162/88
--- NOTE | 2016-12-27 18:19 | EDM.PDOC ---
ED HPI GENERAL MEDICAL PROBLEM - General Chief Complaint: Respiratory Problem Stated Complaint: COLD Time Seen by Provider: 12/27/16 18:05 Source of Information: Reports: Patient History Limitations: Reports: No Limitations - History of Present Illness INITIAL COMMENTS - FREE TEXT/NARRATIVE: This 71 yo female patient report to the ED with increased shortness of breath and a cough for the past week. The patient reports she has been taking a Z-pack from [place] for the past 4 days. The patient reports she attempted to get an appointment in the Clinic today, but there were no appointments available. The patient's "finally" talked her into coming in. Onset: Gradual Duration: Week(s):, Constant, Getting Worse Location: Reports: Chest Quality: Reports: Dull Severity: Moderate Improves with: Reports: None Worsens with: Reports: None Associated Symptoms: Reports: cough w sputum Treatments [employer]: Reports: Other Medication(s) (Azithromycin) Headache Pain Score (Numeric/FACES): 8 - Related Data Allergies Allergy/AdvReac Type Severity Reaction Status Date / Time sulfamethoxazole Allergy Nausea and Verified 12/27/16 17:56 [From Bactrim] Vomiting trimethoprim [From Bactrim] Allergy Nausea and Verified 12/27/16 17:56 Vomiting Home Meds: Home Meds Aspirin [Halfprin] 81 mg PO DAILY 01/22/15 [History] Zolpidem [Ambien] 5 mg PO BEDTIME 01/22/15 [History] atorvaSTATin [Lipitor] 20 mg PO BEDTIME 01/22/15 [History] Docusate Sodium [Colace] 1 tab PO BEDTIME PRN 02/26/16 [History] Hydrocodone/Acetaminophen [Lorcet 5-325 mg Tablet] 1 tab PO Q4H 02/26/16 [ History] Past Medical History HEENT History: Reports: None, Sinusitis Cardiovascular History: Reports: CAD, High Cholesterol, SOB on Exertion, Stents , Syncope Other Cardiovascular History: 3 stents Respiratory History: Reports: None, Bronchitis, Recurrent, Croup, Pneumonia, Recurrent Gastrointestinal History: Reports: Diverticulosis, GERD, Hemorrhoids, Hiatal Hernia, Other (See Below) Other Gastrointestinal History: Stent on Right side from bowel obstruction Genitourinary History: Reports: Renal Calculus, UTI, Recurrent [employer] History: Reports: Other OB/BYN History: NVD 4 Musculoskeletal History: Reports: Arthritis, Back Pain, Chronic, Other (See Below) Other Musculoskeletal History: degenerative joint disease Neurological History: Reports: None Psychiatric History: Reports: None Endocrine/Metabolic History: Reports: Obesity/BMI 30+ Hematologic History: Reports: B12 Deficiency Immunologic History: Reports: None Oncologic (Cancer) History: Reports: None Dermatologic History: Reports: None - Infectious Disease History Infectious Disease History: Reports: Chicken Pox, Measles, Mumps, Pertussis ( Whooping Cough), Other (See Below) Other Infectious Disease History: Rhuematic fever - Past Surgical History HEENT Surgical History: Reports: Adenoidectomy, Eye Surgery, Tonsillectomy Cardiovascular Surgical History: Reports: Coronary Artery Stent Respiratory Surgical History: Reports: None GI Surgical History: Reports: Cholecystectomy, Colonoscopy, EGD Female Surgical History: Reports: Hysterectomy, Tubal Ligation Musculoskeletal Surgical History: Reports: Other (See Below) Social & Family History - Family History Family Medical History: Noncontributory - Tobacco Use Smoking Status *Q: Never Smoker Second Hand Smoke Exposure: No - Caffeine Use Caffeine Use: Reports: Coffee Other Caffeine Use: drink 3-4 cups a day - Recreational Drug Use Recreational Drug Use: No - Living Situation & Occupation Living situation: Reports: , with Spouse Occupation: Retired ED ROS GENERAL - Review of Systems Review Of Systems: ROS reveals no pertinent complaints other than HPI. ED EXAM, GENERAL - Physical Exam Exam: See Below Exam Limited By: No Limitations General Appearance: Alert, WD/WN, Moderate Distress Eye Exam: Bilateral Eye: EOMI, Normal Inspection, PERRL Ears: Normal External Exam, Normal Canal, Hearing Grossly Normal, Normal TMs Nose: Normal Inspection, Normal Mucosa, No Blood Throat/Mouth: Normal Inspection, Normal Lips, Normal Teeth, Normal Gums, Normal Oropharynx, Normal Voice, No Airway Compromise Head: Atraumatic, Normocephalic Neck: Normal Inspection, Supple, Non-Tender, Full Range of Motion Respiratory/Chest: Decreased Breath Sounds, Rhonchi Cardiovascular: Normal Peripheral Pulses, Regular Rate, Rhythm, No Edema, No Gallop, No JVD, No Murmur, No Rub GI/Abdominal: Normal Bowel Sounds, Soft, Non-Tender, No Organomegaly, No Distention, No Abnormal Bruit, No Mass (Female) Exam: Deferred Rectal (Female) Exam: Deferred Back Exam: Normal Inspection, Full Range of Motion, NT Extremities: Normal Inspection, Normal Range of Motion, Non-Tender, Normal Capillary Refill, No Pedal Edema Neurological: Alert, Oriented, CN II-XII Intact, Normal Cognition, Normal Gait, Normal Reflexes, No Motor/Sensory Deficits Psychiatric: Normal Affect, Normal Mood Skin Exam: Warm, Dry, Intact, Normal Color, No Rash Lymphatic: No Adenopathy Course - Vital Signs Last Recorded V/S: Last Vital Signs Temp 36.9 C 12/27/16 17:59 Pulse 79 12/27/16 17:59 Resp 18 12/27/16 17:59 BP 162/88 H 12/27/16 17:59 Pulse Ox 99 12/27/16 17:59 - Orders/Labs/Meds Orders: Active Orders 24 hr Category Date Time Status Chest 2V [CR] Urgent Exams 12/27/16 18:06 Taken Labs: Laboratory Tests 12/27/16 12/27/16 Range/Units 18:14 18:14 WBC 7.1 (5.0-10.0) 10^3/uL RBC 4.49 (4.2-5.4) 10^6/uL Hgb 13.6 (12.0-16.0) g/dL Hct 40.9 (37.0-47.0) % MCV 91.1 (80-100) fL MCH 30.3 (27.0-34.0) pg MCHC 33.3 (33.0-35.0) g/dL Plt Count 287 (150-450) 10^3/uL Neut % (Auto) 57.7 (42.2-75.2) % Lymph % (Auto) 29.1 (20.5-50.1) % [place] % (Auto) 12.8 H (2-8) % Eos % (Auto) 0.0 L (1.0-3.0) % Baso % (Auto) 0.4 (0.0-1.0) % Sodium 143 (135-145) mmol/L Potassium 3.9 (3.6-5.0) mmol/L Chloride 107 (101-111) mmol/L Carbon Dioxide 26.0 (21.0-31.0) mmol/L Anion Gap 13.9 BUN 17 (7-18) mg/dL Creatinine 0.9 (0.6-1.3) mg/dL Est Cr Clr Drug Dosing 47.43 mL/min Estimated GFR (MDRD) > 60 BUN/Creatinine Ratio 18.88 Glucose 101 (74-105) mg/dL Calcium 9.3 (8.4-10.2) mg/dl Total Bilirubin 0.5 (0.2-1.0) mg/dL AST 24 (10-42) IU/L ALT 20 (10-60) IU/L Alkaline Phosphatase 75 (42-121) IU/L Total Protein 7.1 (6.7-8.2) g/dl Albumin 4.0 (3.2-5.5) g/dl Globulin 3.1 Albumin/Globulin Ratio 1.29 Departure - Departure Time of Disposition: 19:03 Disposition: Home, Self-Care 01 Condition: Fair Clinical Impression: Bronchitis - Discharge Information Instructions: Acute Bronchitis, [id number] Forms: ED Department Discharge Care Plan Goals: The patient was advised of the examination, lab and x-ray results during the visit. The patient was discharged with a script for 1) Levaquin (500 mg) #7 to take 1 by mouth daily for 7 days, 2) Prednisone (20 mg) #10 to take 2 by mouth daily for 5 days and 3) Robitussin AC #100 mL to take 10 mL by mouth at bedtime as needed. If the patient has any additional symptoms or concerns, the patient should follow-up with her primary care facility or return to the emergency department. - My Orders Last 24 Hours: My Active Orders 12/27/16 18:06 Chest 2V [CR] Urgent - Assessment/Plan Last 24 Hours: My Active Orders 12/27/16 18:06 Chest 2V [CR] Urgent
[2016-12-27 18:40] LABS: CHLORIDE,CL 107 mmol/L (101-111); SODIUM,NA 143 mmol/L (135-145)
== END 2016-12-27 19:18 | disposition home or self-care (01) ==
LOC: DL.ED 17:12
DX: J40 Bronchitis, not specified as acute or chronic (principal); I25.10 Atherosclerotic heart disease of native coronary artery without angina pectoris; E78.00 Pure hypercholesterolemia, unspecified; K21.9 Gastro-esophageal reflux disease without esophagitis; M19.90 Unspecified osteoarthritis, unspecified site; E11.9 Type 2 diabetes mellitus without complications; Z98.890 Other specified postprocedural states; Z90.49 Acquired absence of other specified parts of digestive tract; Z90.710 Acquired absence of both cervix and uterus; Z98.51 Tubal ligation status; Z88.2 Allergy status to sulfonamides; Z88.1 Allergy status to other antibiotic agents; Z79.82 Long term (current) use of aspirin; Z79.899 Other long term (current) drug therapy; Z87.440 Personal history of urinary (tract) infections; Z87.442 Personal history of urinary calculi
CPT/HCPCS: 36415; 71020; 80053; 85025; 99283

== ENCOUNTER 2017-01-29 06:30 | Day surgery (SDC) | payer MEDICARE ==
[~2017-01-29 06:30] MED LIST: Dilation Soln 1 EA EACH EYELF ONE; Moxifloxacin 0.5% Ophth Soln 3 ML Bottle EYELF ONE; Phenylephrine 10% Ophth Soln 5 ML Bot EYELF ONE; Povidone-Iodine 5% Sterile Ophth Soln 30 ML Bottle EYELF ONE; Proparacaine 0.5% Ophth Soln 15 ML Bottle EYELF SCH; Sodium Chloride 0.9% 10 ML Syringe FLUSH PRN; Timolol Maleate 0.5% Ophth Soln 5 ML Bottle EYELF ONE
[2017-01-29] MEDS ORDERED: Midazolam 1 MG/ML 2 ML SDV ONE (07:20)
[2017-01-29] MEDS ORDERED: Dexamethasone 4 MG/ML SDV ONE (07:20)
[2017-01-29] MEDS ORDERED: Tetracaine HCl/PF 0.5% 4 ML Bottle EYELF ONE (07:51)
[2017-01-29] MEDS ORDERED: Lidocaine 1% 30 ML SDV ONE (07:51)
[2017-01-29] MEDS ORDERED: Povidone-Iodine 5% Sterile Ophth Soln 30 ML Bottle EYELF ONE (07:51)
[2017-01-29] MEDS ORDERED: Diclofenac Sodium 0.1% Ophth Soln 5 ML Bottle EYELF ONE (07:52)
[2017-01-29] MEDS ORDERED: Dexamethasone/Tobramycin 0.1-0.3% Ophth Oint 3.5 GM Tube EYELF ONE (07:52)
[2017-01-29] MEDS ORDERED: Apraclonidine 0.5% Ophth Soln 5 ML Bot EYELF ONE (07:52)
[2017-01-29] MEDS ORDERED: Chondroitin Sulfate/Hyaluronate Sodium Ophth Inj 0.75 ML Syringe EYELF ONE (07:53)
[2017-01-29] MEDS ORDERED: Balanced Salt Solution Ophth Irrig 500 ML Bottle IOCULAR ONE (07:53)
[2017-01-29] MEDS ORDERED: Vancomycin 500 MG SDV EYELF ONE (07:53)
--- NOTE | 2017-01-29 08:17 | OR ---
DATE: 01/29/2017 PREOPERATIVE DIAGNOSIS: Cataract, left eye. POSTOPERATIVE DIAGNOSIS: Cataract, left eye. PROCEDURE: Extracapsular cataract extraction with intraocular lens implant, left eye. ANESTHESIA: Topical/local MAC. COMPLICATIONS: None. INDICATION: Mrs. Toledo was seen in the clinic. She has complained of a slow progressive decrease in vision. Her clinical examination revealed visually significant cataract. I explained options, I offered cataract surgery, and I explained risks including the potential for visual loss. We discussed implant options. She requested a monofocal implant. She is comfortable wearing glasses following surgery if necessary. OPERATIVE DESCRIPTION: After informed consent was obtained and the risks, benefits, and alternatives were explained, the patient was brought to the operative suite and topical anesthesia was administered. The patient was then prepped and draped in the sterile fashion and attention was placed on the left eye. A sterile lid speculum was placed into the left eye to allow operative exposure. A full-thickness paracentesis was made in the temporal portion of the operative eye. Preservative-free lidocaine 0.1 mL was injected into the anterior chamber followed by viscoelastic. A full-thickness corneal incision was then made into the anterior chamber. A bent needle cystotome was used to create a small vicky in the anterior capsule. The capsulorrhexis forceps was then used to create a 360-degree curvilinear capsulorrhexis. The nucleus was then removed using a phacoemulsification handpiece and the remaining cortical material was then removed with irrigation and aspiration handpiece. Following removal of the cortical material, the capsular bag was then inspected and noted to be free of any holes or tears. Viscoelastic was then injected into the capsular bag and the intraocular lens was inserted into the capsular bag. The viscoelastic material was then removed from both the anterior and posterior chambers and from behind the IOL. The lens and capsular bag were then reinspected. The IOL was well centered and the capsular bag intact. The wound and paracentesis sites were inspected and hydrated with balanced saline solution. Both were found to be self-sealing. The intraocular pressure was assessed digitally and found to be within normal range. A good red reflex was noted at the completion of the procedure. No complications occurred during the operation. At the completion of the procedure, Maxitrol, Voltaren, and Iopidine drops were placed into the operative eye. A sterile eye shield was placed over the operative eye and the patient was transported to the postoperative recovery area having tolerated the procedure well. Postoperative instructions were given along with a postoperative appointment. The patient was advised to call with any questions or concerns. [facility] /[phone]
[2017-01-29] MEDS ORDERED: Acetaminophen 325 MG Tab PO PRN (08:35)
[2017-01-29 09:26] VITALS: BP 115/55
[2017-01-29] MEDS ORDERED: Sodium Chloride 0.9% 10 ML Syringe IV ONE (14:11)
[2017-01-29] MEDS ORDERED: Dexamethasone 4 MG/ML SDV IV ONE (14:11)
[2017-01-29] MEDS ORDERED: Midazolam 1 MG/ML 2 ML SDV IV ONE (14:11)
== END 2017-01-29 09:02 | disposition home or self-care (01) ==
LOC: DL.SDS 06:30
PROVIDERS: ATTEND Ophthalmology
DX: H26.9 Unspecified cataract (principal); I25.10 Atherosclerotic heart disease of native coronary artery without angina pectoris; F32.9 Major depressive disorder, single episode, unspecified; Z88.1 Allergy status to other antibiotic agents; Z88.2 Allergy status to sulfonamides; Z95.5 Presence of coronary angioplasty implant and graft; E78.5 Hyperlipidemia, unspecified; Z98.890 Other specified postprocedural states; Z90.710 Acquired absence of both cervix and uterus; Z90.49 Acquired absence of other specified parts of digestive tract; Z98.51 Tubal ligation status; Z79.82 Long term (current) use of aspirin; Z79.899 Other long term (current) drug therapy
CPT/HCPCS: 00142; 66984; A9270; C1780; J1100; J2250; J3370; J7050

== ENCOUNTER 2017-02-05 06:48 | Day surgery (SDC) | payer MEDICARE ==
[~2017-02-05 06:48] MED LIST changes: -Dilation Soln 1 EA EACH EYELF ONE; +Dilation Soln 1 EA EACH EYERT ONE; -Moxifloxacin 0.5% Ophth Soln 3 ML Bottle EYELF ONE; +Moxifloxacin 0.5% Ophth Soln 3 ML Bottle EYERT ONE; -Phenylephrine 10% Ophth Soln 5 ML Bot EYELF ONE; +Phenylephrine 10% Ophth Soln 5 ML Bot EYERT ONE; -Povidone-Iodine 5% Sterile Ophth Soln 30 ML Bottle EYELF ONE; +Povidone-Iodine 5% Sterile Ophth Soln 30 ML Bottle EYERT ONE; -Proparacaine 0.5% Ophth Soln 15 ML Bottle EYELF SCH; +Proparacaine 0.5% Ophth Soln 15 ML Bottle EYERT ONE; -Timolol Maleate 0.5% Ophth Soln 5 ML Bottle EYELF ONE; +Timolol Maleate 0.5% Ophth Soln 5 ML Bottle EYERT ONE
[2017-02-05] MEDS ORDERED: Midazolam 1 MG/ML 2 ML SDV ONE (07:31)
[2017-02-05] MEDS ORDERED: Dexamethasone 4 MG/ML SDV ONE (07:31)
[2017-02-05] MEDS ORDERED: Povidone-Iodine 5% Sterile Ophth Soln 30 ML Bottle EYERT ONE (08:33)
[2017-02-05] MEDS ORDERED: Lidocaine 1% 30 ML SDV ONE (08:33)
[2017-02-05] MEDS ORDERED: Diclofenac Sodium 0.1% Ophth Soln 5 ML Bottle EYERT ONE (08:35)
[2017-02-05] MEDS ORDERED: Apraclonidine 0.5% Ophth Soln 5 ML Bot EYERT ONE (08:35)
[2017-02-05] MEDS ORDERED: Tetracaine HCl/PF 0.5% 4 ML Bottle EYERT ONE (08:35)
[2017-02-05] MEDS ORDERED: Balanced Salt Solution Ophth Irrig 500 ML Bottle IOCULAR ONE (08:36)
[2017-02-05] MEDS ORDERED: Chondroitin Sulfate/Hyaluronate Sodium Ophth Inj 0.75 ML Syringe EYERT ONE (08:36)
[2017-02-05] MEDS ORDERED: Dexamethasone/Tobramycin 0.1-0.3% Ophth Oint 3.5 GM Tube EYERT ONE (08:36)
[2017-02-05] MEDS ORDERED: Vancomycin 500 MG SDV EYERT ONE (08:38)
[2017-02-05] MEDS ORDERED: Acetaminophen 325 MG Tab PO ONE (09:05)
[2017-02-05 09:53] VITALS: BP 154/84
--- NOTE | 2017-02-05 10:09 | OR ---
DATE: 02/05/2017 PREOPERATIVE DIAGNOSIS: Cataract, right eye. POSTOPERATIVE DIAGNOSIS: Cataract, right eye. PROCEDURE: Extracapsular cataract extraction with intraocular lens implant, right eye. ANESTHESIA: Topical/local MAC. COMPLICATIONS: None. INDICATION: Mrs. Toledo was seen in the clinic. She has complained of difficulty reading, difficulty sewing, and difficulty driving. Clinical examination reveals visually significant cataract. I explained options. I offered cataract surgery, and I explained risks including but not limited to, infection, retinal detachment, loss of vision, need for additional surgery, and risks associated with anesthesia. We discussed implant options. She requested a monofocal implant. She voiced an understanding with respect to risks and wished to proceed. OPERATIVE DESCRIPTION: After informed consent was obtained and the risks, benefits, and alternatives were explained, the patient was brought to the operative suite and topical anesthesia was administered. The patient was then prepped and draped in the sterile fashion and attention was placed on the right eye. A sterile lid speculum was placed into the right eye to allow operative exposure. A full-thickness paracentesis was made in the temporal portion of the operative eye. Preservative-free lidocaine 0.1 mL was injected into the anterior chamber followed by viscoelastic. A full-thickness corneal incision was then made into the anterior chamber. A bent needle cystotome was used to create a small vicky in the anterior capsule. The capsulorrhexis forceps was then used to create a 360-degree curvilinear capsulorrhexis. The nucleus was then removed using a phacoemulsification handpiece and the remaining cortical material was then removed with irrigation and aspiration handpiece. Following removal of the cortical material, the capsular bag was then inspected and noted to be free of any holes or tears. Viscoelastic was then injected into the capsular bag and the intraocular lens was inserted into the capsular bag. No complications occurred. The viscoelastic material was then removed from both the anterior and posterior chambers and from behind the IOL. The lens and capsular bag were then reinspected. The IOL was well centered and the capsular bag intact. The wound and paracentesis sites were inspected and hydrated with balanced saline solution. Both were found to be self-sealing. The intraocular pressure was assessed digitally and found to be within normal range. A good red reflex was noted at the completion of the procedure. No complications occurred during the operation. At the completion of the procedure, Maxitrol, Voltaren, and Iopidine drops were placed into the operative eye. A sterile eye shield was placed over the operative eye and the patient was transported to the postoperative recovery area having tolerated the procedure well. Postoperative instructions were given along with a postoperative appointment. The patient was advised to call with any questions or concerns. [facility] /[id number]
[2017-02-05] MEDS ORDERED: Dexamethasone 4 MG/ML SDV IV ONE (15:21)
[2017-02-05] MEDS ORDERED: Midazolam 1 MG/ML 2 ML SDV IV ONE (15:21)
== END 2017-02-05 09:50 | disposition home or self-care (01) ==
LOC: DL.SDS 06:48
PROVIDERS: ATTEND Ophthalmology
PROC: 08RJ3JZ Replacement of Right Lens with Synthetic Substitute, Percutaneous Approach (ICD-10-PCS; principal; 2017-02-05)
PROC: 08RJ3JZ Replacement of Right Lens with Synthetic Substitute, Percutaneous Approach (ICD-10-PCS; 2017-02-05)
DX: H26.9 Unspecified cataract (principal); I25.10 Atherosclerotic heart disease of native coronary artery without angina pectoris; Z95.5 Presence of coronary angioplasty implant and graft; K57.30 Diverticulosis of large intestine without perforation or abscess without bleeding; M19.90 Unspecified osteoarthritis, unspecified site; Z79.899 Other long term (current) drug therapy
CPT/HCPCS: 00142; 66984; A9270; C1780; J1100; J2250; J3370; J7050

== ENCOUNTER 2019-03-18 06:23 | Day surgery (SDC) | payer MEDICARE ==
[~2019-03-18 06:23] MED LIST changes: -Dilation Soln 1 EA EACH EYERT ONE; +Midazolam 1 MG/ML 2 ML SDV ONE; -Moxifloxacin 0.5% Ophth Soln 3 ML Bottle EYERT ONE; -Phenylephrine 10% Ophth Soln 5 ML Bot EYERT ONE; -Povidone-Iodine 5% Sterile Ophth Soln 30 ML Bottle EYERT ONE; -Proparacaine 0.5% Ophth Soln 15 ML Bottle EYERT ONE; -Sodium Chloride 0.9% 10 ML Syringe FLUSH PRN; -Timolol Maleate 0.5% Ophth Soln 5 ML Bottle EYERT ONE; +fentaNYL 100 MCG/2 ML SDV ONE
[2019-03-18] MEDS ORDERED: Midazolam 1 MG/ML 2 ML SDV IV ONE ×4 (06:24→07:53)
[2019-03-18] MEDS ORDERED: fentaNYL 100 MCG/2 ML SDV IV ONE ×3 (06:24→07:51)
[2019-03-18] MEDS ORDERED: Dextrose 5%-0.45% NaCl 1,000 ML IV SCH (06:30)
--- NOTE | 2019-03-18 08:44 | OR ---
DATE: 03/18/2019 PROCEDURES: Esophagogastroduodenoscopy, NBI, and multiple pinch biopsies. INSTRUMENT USED: GIF-HQ190 Olympus video panendoscope. PREMEDICATIONS: No oral or topical anesthesia used. Fentanyl 100 mcg intravenous, Versed 2 mg intravenous, nasal O2 cannula. The procedure was done under pulse oximetry, BP recording, and manager cardiac. INDICATION: The patient with persistent abdominal pain and dyspepsia, unexplained and not responsive to medical measures, on PPI. Esophagogastroduodenoscopy is performed for detection of any active erosive lesions, Galindo esophagus and/or malignancy also under consideration, H. pylori status to be determined. Small bowel biopsies to be obtained for celiac disease if indicated, endoscopic hemostasis therapy if needed. PROCEDURE IN DETAIL: The scope was passed with ease. Adequate visualization of the esophagus was made from proximal to distal areas. No upper esophageal lesions identified. No distal esophageal stricture. No uphill or downhill esophageal varices. No Malou-Cox tear. No evidence of erosive esophagitis by [place] criteria. No esophageal polyp or tumor mass identified. Z-line was seen at around 40 cm distal to the oral verge, configuration consistent with grade 1 by ZAP classification. No proximal gastric varices noted. Gastric fundus examination by retroflexion showed no polypoid lesions. No gastric ulcer, malignant mass, or vascular ectasia identified. Duodenal bulb showed erosion without bleeding from it. NBI views were obtained. Visualized second part of the duodenum was unremarkable. Multiple pinch biopsies, 4 in number, were taken from different areas of the second part of the duodenum, and also tissues were obtained from the duodenal bulb at 9 and 12 o'clock positions and sent for any histopathologic evidence of celiac disease. Multiple pinch biopsies were also taken from the gastric antrum and proximal body and sent for PyloriTek test for H. pylori and histopathology. No bleeding was noted from any of the visualized areas at the completion of examination. Photographs were taken of the duodenal bulb, gastric antrum, fundus, and distal esophagus. IMPRESSION: Duodenal bulb erosion. The patient tolerated the procedure well. [facility] /[id number]
[2019-03-18 10:31] VITALS: BP 103/50
== END 2019-03-18 10:05 | disposition home or self-care (01) ==
LOC: DL.ENDO 06:23
PROVIDERS: ATTEND Internal Medicine Gastroenterology
DX: K26.9 Duodenal ulcer, unspecified as acute or chronic, without hemorrhage or perforation (principal); K31.89 Other diseases of stomach and duodenum; I25.10 Atherosclerotic heart disease of native coronary artery without angina pectoris; F32.9 Major depressive disorder, single episode, unspecified; F41.1 Generalized anxiety disorder; E78.5 Hyperlipidemia, unspecified; E53.8 Deficiency of other specified B group vitamins
CPT/HCPCS: 43239; 87077; J2250; J3010; J7042

== ENCOUNTER 2021-03-02 14:50 | Emergency (ER) | payer MEDICARE, OTHER ==
[2021-03-02 15:32] VITALS: PULSE 76
--- NOTE | 2021-03-02 16:11 | EDM.PDOC ---
<Jimmy Cage Tawnya - Last Filed: 03/02/21 16:51> ED HPI GENERAL MEDICAL PROBLEM - General Chief Complaint: Cardiovascular Problem Stated Complaint: CHEST PAIN THROUGH JAW AND TOP OF HEAD FEELS SPACY Time Seen by Provider: 03/02/21 16:00 Source of Information: Reports: Patient History Limitations: Reports: No Limitations - History of Present Illness INITIAL COMMENTS - FREE TEXT/NARRATIVE: 76 y/o F reports an episode of CP today around 11 am. The cp was center chest radiating to the back and neck, sharp in nature, 10/21. The pt decided to rest on the couch and the pain subsided on its own. She then got up and ate some soup and became slightly nauseous. The nausea subsided after half and hour and the pt went on about her today like normal but felt fatigued. She presents now with fatigue and would like a work up. 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 2 stents placed 4 years ago after an angiogram revealed disease in the LAD. Denies fever, chills, drugs, abd pn, vision prob, swelling in the extremities. Onset: Today, Sudden Duration: Minutes: Location: Reports: Neck, Chest, Back Quality: Reports: Sharp Severity: Mild Worsens with: Reports: None - Related Data Allergies Allergy/AdvReac Type Severity Reaction Status Date / Time sulfamethoxazole AdvReac Nausea and Verified 03/02/21 15:32 [From Bactrim] Vomiting trimethoprim [From Bactrim] AdvReac Nausea and Verified 03/02/21 15:32 Vomiting Home Meds: Home Meds atorvaSTATin [Lipitor] 40 mg PO BEDTIME 01/22/15 [History] Aspirin [Halfprin] 1 tab PO BEDTIME 01/24/17 [History] Pantoprazole [ProTONIX] 40 mg PO DAILY 03/17/19 [History] Amitriptyline [Elavil] 10 mg PO BEDTIME 03/02/21 [History] Past Medical History HEENT History: Reports: Sinusitis Cardiovascular History: Reports: CAD, High Cholesterol, SOB on Exertion, Stents, Syncope Other Cardiovascular History: 3 stents Respiratory History: Reports: Bronchitis, Recurrent, Croup, Pneumonia, Recurrent Gastrointestinal History: Reports: Diverticulosis, GERD, Hemorrhoids, Hiatal Hernia, Other (See Below) Other Gastrointestinal History: Stent on Right side from bowel obstruction Genitourinary History: Reports: Renal Calculus, UTI, Recurrent TITLE INSPECTOR History: Reports: Other TITLE INSPECTOR History: NVD 4 Musculoskeletal History: Reports: Arthritis, Back Pain, Chronic, Osteoarthritis, Other (See Below) Other Musculoskeletal History: degenerative joint disease Neurological History: Reports: None Psychiatric History: Reports: None Endocrine/Metabolic History: Reports: Obesity/BMI 30+ Hematologic History: Reports: B12 Deficiency Immunologic History: Reports: None Oncologic (Cancer) History: Reports: None Dermatologic History: Reports: None - Infectious Disease History Infectious Disease History: Reports: Chicken Pox, Measles, Mumps, Pertussis (Whooping Cough), Other (See Below) Other Infectious Disease History: Rhuematic fever - Past Surgical History Head Surgeries/Procedures: Reports: None HEENT Surgical History: Reports: Adenoidectomy, Cataract Surgery, Eye Surgery, Tonsillectomy, Other (See Below) Other HEENT Surgeries/Procedures: nodule removed from throat years ago Cardiovascular Surgical History: Reports: Coronary Artery Stent Respiratory Surgical History: Reports: None GI Surgical History: Reports: Cholecystectomy, Colonoscopy, EGD Female Surgical History: Reports: Hysterectomy, Kidney stone extraction, Tubal Ligation, Other (See Below) Other Female Surgeries/Procedures: ovarian cyst surg Neurological Surgical History: Reports: None Musculoskeletal Surgical History: Reports: Other (See Below) Other Musculoskeletal Surgeries/Procedures:: multiple joint surgical procedures, bilateral arthroscopic knee surg Oncologic Surgical History: Reports: None Dermatological Surgical History: Reports: None Social & Family History - Family History Family Medical History: No Pertinent Family History - Tobacco Use Tobacco Use Status *Q: Never Tobacco User Second Hand Smoke Exposure: No - Caffeine Use Caffeine Use: Reports: Coffee Other Caffeine Use: drink 3-4 cups a day - Recreational Drug Use Recreational Drug Use: No - Living Situation & Occupation Living situation: Reports: , with Spouse Occupation: Retired ED ROS GENERAL - Review of Systems Review Of Systems: Comprehensive ROS is negative, except as noted in HPI. ED EXAM, GENERAL - Physical Exam Exam: See Below Exam Limited By: No Limitations General Appearance: Alert, No Apparent Distress Throat/Mouth: Normal Inspection, Normal Lips, Normal Teeth, Normal Gums, Normal Oropharynx, Normal Voice, No Airway Compromise Head: Atraumatic, Normocephalic Neck: Normal Inspection, Supple, Non-Tender, Full Range of Motion Respiratory/Chest: No Respiratory Distress, Lungs Clear, Normal Breath Sounds, No Accessory Muscle Use, Chest Non-Tender Cardiovascular: Normal Peripheral Pulses, Regular Rate, Rhythm, No Edema, No Gallop, No JVD, No Murmur, No Rub Peripheral Pulses: 2+: Radial (L), Radial (R), Dorsalis Pedis (L), Dorsalis Pedis (R) GI/Abdominal: Soft, Non-Tender (Female) Exam: Deferred Rectal (Female) Exam: Deferred Back Exam: Normal Inspection, Full Range of Motion Extremities: Normal Inspection, Normal Range of Motion, Non-Tender, Normal Capillary Refill, No Pedal Edema Neurological: Alert, Oriented, Normal Cognition Psychiatric: Normal Affect, Normal Mood Skin Exam: Warm, Dry, Intact #1 Interpretation EKG Date: 03/02/21 Time: 15:22 Rhythm: NSR [place]: LAD-Left [place] Deviation P-Wave: Present QRS: Normal ST-T: Normal QT: Normal Departure - Departure Disposition: Home, Self-Care 01 Clinical Impression: Nonspecific chest pain Instructions: Nonspecific Chest Pain, Adult, [id number] Forms: ED Department Discharge Care Plan Goals: The patient was advised of the examination, lab, EKG and x-ray results during the visit. The patient was encouraged to continue to monitor for any additional symptoms. If the patient has any additional symptoms, the patient was advised to either return to the emergency department or visit her primary care facility. Sepsis Event Note (ED) - Evaluation Sepsis Screening Result: No Definite Risk <Brijesh Wallace - Last Filed: 03/02/21 17:11> Course - Vital Signs Last Recorded V/S: Last Vital Signs Temp 97.7 F 03/02/21 15:17 Pulse 76 03/02/21 15:17 Resp 16 03/02/21 15:17 BP Pulse Ox 100 03/02/21 15:17 - Orders/Labs/Meds Orders: Active Orders 24 hr Category Date Time Status EKG Documentation Completion [RC] STAT Care 03/02/21 16:00 Active D-DIMER QUANTITATIVE [COAG] Stat Lab 03/02/21 16:19 Received Labs: Laboratory Tests 03/02/21 03/02/21 Range/Units 16:19 16:19 WBC 5.4 (5.0-10.0) 10^3/uL RBC 4.91 (4.2-5.4) 10^6/uL Hgb 15.1 D (12.0-16.0) g/dL Hct 44.7 (37.0-47.0) % MCV 91.0 (80-100) fL MCH 30.8 (27.0-34.0) pg MCHC 33.8 (33.0-35.0) g/dL Plt Count 219 (150-450) 10^3/uL Neut % (Auto) 52.4 (42.2-75.2) % Lymph % (Auto) 34.3 (20.5-50.1) % [place] % (Auto) 10.3 H (2-8) % Eos % (Auto) 2.6 (1.0-3.0) % Baso % (Auto) 0.4 (0.0-1.0) % Sodium 144 (136-145) mmol/L Potassium 4.6 (3.5-5.1) mmol/L Chloride 107 (98-107) mmol/L Carbon Dioxide 29 (21-32) mmol/L Anion Gap 12.6 (7-13) mEq/L BUN 17 (7-18) mg/dL Creatinine 1.19 H (0.55-1.02) mg/dL Est Cr Clr Drug Dosing 36.92 mL/min Estimated GFR (MDRD) 44 BUN/Creatinine Ratio 14.3 (No establ ref range) Glucose 88 (70-99) mg/dL Calcium 8.6 (8.5-10.1) mg/dL Total Bilirubin 0.7 (0.2-1.0) mg/dL AST 30 (15-37) U/L ALT 46 (14-59) U/L Alkaline Phosphatase 78 (46-116) U/L Troponin I High Sens 5 (<=51) pg/mL Total Protein 6.7 (6.4-8.2) g/dL Albumin 3.6 (3.4-5.0) g/dL Globulin 3.1 Albumin/Globulin Ratio 1.2 Amylase 64 (25-115) U/L Lipase 162 (73-393) U/L - Re-Assessments/Exams Free Text/Narrative Re-Assessment/Exam: 03/02/21 17:08 The patient was reevaluated with no additional symptoms or current problems. The patient was advised of the examination, lab, EKG and x-ray results. The patient reports no return of her symptoms. Departure - Departure Time of Disposition: 17:09 Condition: Fair Sepsis Event Note (ED) - Focused Exam Vital Signs: Vital Signs Temp Pulse Resp Pulse Ox 03/02/21 15:17 97.7 F 76 16 100 - My Orders Last 24 Hours: My Active Orders 03/02/21 16:00 EKG Documentation Completion [RC] STAT 03/02/21 16:19 D-DIMER QUANTITATIVE [COAG] Stat - Assessment/Plan Last 24 Hours: My Active Orders 03/02/21 16:00 EKG Documentation Completion [RC] STAT 03/02/21 16:19 D-DIMER QUANTITATIVE [COAG] Stat
--- NOTE | 2021-03-02 16:26 | CR ---
EXAMINATION: Chest 1V Frontal SEX: Female AGE: 76 years CLINICAL HISTORY: 76-year-old female with chest pain. Comparison exam 27 December 2016. Interpretation: Chronic asymmetric elevation right hemidiaphragm. (Surgical clips gallbladder fossa RUQ) No new parenchymal lung or mediastinal mass lesion. No hilar lymphadenopathy. Normal cardiac silhouette (size and configuration) unchanged since 27 December 2016 CXR. No pulmonary vascular congestion, cephalization of flow, alveolar edema or dependent new pleural fluid accumulation. No alveolar infiltrate, air bronchograms, or peripheral "groundglass" interstitial lung densities. No pneumothorax or pneumomediastinum. No free subdiaphragmatic air. CONCLUSION: No acute new cardiopulmonary abnormality. CONCLUSION:
[2021-03-02 16:55] LABS: ANION GAP 12.6 mEq/L (7-13)
== END 2021-03-02 17:28 | disposition home or self-care (01) ==
LOC: DL.ED 14:50
DX: R07.9 Chest pain, unspecified (principal); I10 Essential (primary) hypertension; K21.9 Gastro-esophageal reflux disease without esophagitis; E66.9 Obesity, unspecified; I25.10 Atherosclerotic heart disease of native coronary artery without angina pectoris; Z88.2 Allergy status to sulfonamides; Z88.8 Allergy status to other drugs, medicaments and biological substances; Z79.82 Long term (current) use of aspirin; Z95.5 Presence of coronary angioplasty implant and graft; Z79.899 Other long term (current) drug therapy; Z68.28 Body mass index [BMI] 28.0-28.9, adult
CPT/HCPCS: 36415; 71045; 80053; 82150; 83690; 84484; 85025; 85379; 99285-25

== ENCOUNTER 2021-12-18 07:37 | Day surgery (SDC) | payer MEDICARE, OTHER ==
[~2021-12-18 07:37] MED LIST changes: +Dextrose 5%-0.45% NaCl 1,000 ML IV SCH; +Sodium Chloride 0.9% 10 ML Syringe FLUSH PRN; +Sodium Chloride 0.9% 10 ML Syringe FLUSH SCH
[2021-12-18] MEDS ORDERED: Midazolam 1 MG/ML 2 ML SDV IV ONE ×9 (07:38→09:36)
[2021-12-18] MEDS ORDERED: fentaNYL 100 MCG/2 ML SDV IV ONE ×7 (07:38→09:26)
[2021-12-18 11:42] VITALS: BP 132/86; PULSE 56
== END 2021-12-18 11:45 | disposition home or self-care (01) ==
LOC: DL.ENDO 07:37
PROVIDERS: ATTEND Internal Medicine Gastroenterology
DX: Z12.11 Encounter for screening for malignant neoplasm of colon (principal); K57.30 Diverticulosis of large intestine without perforation or abscess without bleeding; K64.8 Other hemorrhoids; N39.0 Urinary tract infection, site not specified; I25.10 Atherosclerotic heart disease of native coronary artery without angina pectoris; E78.5 Hyperlipidemia, unspecified; E53.0 Riboflavin deficiency; F32.A Depression, unspecified; Z98.890 Other specified postprocedural states; Z01.812 Encounter for preprocedural laboratory examination; Z20.822 Contact with and (suspected) exposure to COVID-19
CPT/HCPCS: G0121; J2250; J3010; J7042; U0002